=== PATIENT | female | born 1975 | race Caucasian/White ===

== ENCOUNTER 2018-07-19 10:22 | Emergency (ER) | payer BC, SELFPAY ==
[2018-07-19 10:23] VITALS: BP 149/98; PULSE 119; RESP 16; TEMP 36.4; O2SAT 98; BMI 26.4
[2018-07-19] MEDS: 0.9% Normal Saline 1,000 ML 1000 ML IV (10:47)
[2018-07-19 11:00] LABS: Absolute Neutrophil Count 4.3 X10^3/uL (2.0-7.7); Basophil# 0.02 X10^3/uL; Basophil% 0.3 % (0-1); Eosinophil# 0.12 X10^3/uL; Eosinophils% 1.6 % (0-5); Hematocrit 43.3 % (37-47); Lymphocyte % 32.6 % (19-41); Mean Corp Hgb Conc 34.6 g/gl (32-36); Mean Corpuscular Hgb 36.6 pg (27.0-32.0); Mean Corpuscular Volume 105.6 fL (81-99); Mean Platelet Vol. 9.4 fl (6.2-12.0); Monocyte# 0.69 X10^3/uL; Neutrophil # 4.34 X10^3/uL (2.7-7.7); Neutrophil % 56.4 % (47-70); POSITIVE COUNT NO; POSITIVE DIFFERENTIAL NO; POSITIVE MORPHOLOGY NO; Platelet Count 334 K/mm3 (150-450); RBC Distribution Width SD 50.2 fl (35.1-43.9); White Blood Count 7.7 K/mm3 (4.4-11.0)
[2018-07-19 11:14] LABS: AST(SGOT) 78 U/L (15-37); Alanine Aminotransfer ALT/SGPT 73 U/L (13-56); Albumin, Serum 3.8 g/dL (3.2-5.0); Alkaline Phosphatase 122 U/L (45-117); Anion Gap 9 (5-15); BUN 5 mg/dL (7-18); BUN/Creat Ratio 7.7 RATIO (10-20); Calcium,Total 8.9 mg/dL (8.5-10.1); Chloride 104 mmol/L (98-107); Creatinine, Serum 0.65 mg/dL (0.55-1.02); EST Glomerular Filtration Rate 105 mL/min (>60); Est Glom Filt Rate - Afr Amer 127 mL/min (>60); Estimated Creatinine Clearance 99.38 ml/min; Glucose 102 mg/dL (74-106); Lipase 248 U/L (73-393); Potassium 3.2 mmol/L (3.5-5.1); Protein, Total 7.8 g/dL (6.4-8.2); Sodium Level 138 mmol/L (136-145)
[2018-07-19 11:21] LABS: Lactic Acid 1.8 mmol/L (0.4-2.0)
[2018-07-19 11:23] LABS: Bacteria 0 SEEN /hpf (None Seen); Color, Urine Yellow (Yellow); Glucose, Dipstick Normal (Normal); Ketone-Dipstick Negative (Negative); Leukocyte Esterase-Dipstick Negative /ul (Negative); Mucous, Urine 0 SEEN /hpf (<or=2+); Nitrite-Dipstick Negative (Negative); Occult Blood-Urine Negative /ul (Negative); Protein-Dipstick Negative (Negative); Red Blood Cells-Urine 0 SEEN /hpf (0-5); Urine Bilirubin Dipstick Negative (Negative); Urine Clarity Clear (Clear); Urine Urobilinogen Normal (Normal); White Blood Cells 0 SEEN /hpf (0-5)
[2018-07-19 11:30] LABS: Squamous Epithelial Cells - UA 0-5 SEEN /hpf (5-10)
[2018-07-19] MEDS: 0.9% Normal Saline 1,000 ML 999 ML IV (12:12)
[2018-07-19 12:21] VITALS: BP 143/80; PULSE 78; RESP 14; O2SAT 100
--- NOTE | 2018-07-19 14:36 | ED.VISSUMM ---
- ER Visit Summary Date of Service: 07/19/18 Chief Complaint: [Diarrhea] History of Present Illness: The patient is a 42 F [presents the emergency department chief complaint of diarrhea that started 5 days ago. Patient states that she has been having watery stools about every 15-20 minutes. Patient denies any abdominal pain. She denies any fever. She denies any recent travel or recent antibiotic usage. Patient states that she is lost about 9 pounds in the last 5 days. Patient's been taken Imodium but not get much resolution of her symptoms. Patient denies any sick contacts.] Physical Examination: HEENT-PERRLA, EOMI. Cranial nerves II through XII grossly intact. TMs clear. Mucous membranes moist. No adenopathy. Cardiovascular-regular rate and rhythm without murmur or ectopy Lungs-clear to auscultation, chest wall stable without crepitus or subcu emphysema Abdomen-hyperactive bowel sounds. Minimal diffuse tenderness. There is no rebound, rigidity, or perineal signs. Extremities-intact ?4, normal range of motion, normal pulses, atraumatic [] Test Results: [CBC with differential obtained showed a white blood cell count of 7.7, hemoglobin 15, hematocrit 43, platelets 334. Chemistries showed a slightly depressed potassium 3.2 otherwise unremarkable. LFTs show slight elevation in her liver enzymes with ALT of 73 and AST of 78 and lipase of 248. Alkaline phosphatase was 122. Total bilirubin was normal 0.3. Urinalysis was normal. Stool for C. difficile was negative. Stool for enteric pathogens was negative.] Emergency Department Course and Treatment: [And received 2 L normal saline fluid boluses. She received 40 mEq potassium chloride p.o.] Treatment Plan: [Patient will be started on Lomotil and she is advised to follow-up with her primary care physician 3-5 days.] Disposition: [Discharged home in stable condition. Patient advised to return if persistent diarrhea, dehydration, high fevers, abdominal pain, or condition should worsen anyway.] Impression: [Diarrhea-etiology uncertain] This note was generated with [employer] dictation software. It may contain incorrect words, spelling, and punctuation that were not noted in review of the chart prior to signing ED Disposition - Plan for ED Patient: Chief Complaint: Diarrhea Referrals: Jaya Conte MD [Primary Care Provider] -
--- NOTE | 2018-07-19 14:39 | ED.DEP ---
ED Disposition - Plan for ED Patient: Chief Complaint: Diarrhea Instructions: ED Diarrhea Viral Prescriptions: Diphenoxylate/Atrop [Lomotil] 1 tab PO TID PRN PRN #20 tab PRN Reason: Diarrhea Referrals: Jaya Conte MD [Primary Care Provider] - 3-5 Days
[2018-07-19 14:49] VITALS: BP 135/71; PULSE 91; RESP 17; O2SAT 97
--- NOTE | 2018-07-19 14:49 | ED.RN ---
IV DC'ED, CATHETER INTACT, SMALL GAUZE DRESSING PLACED. DISCHARGE INSTRUCTIONS GIVEN TO AND REVIEWED WITH PATIENT, PATIENT DENIES QUESTIONS OR CONCERNS AND VOICES UNDERSTANDING OF DISCHARGE INSTRUCTIONS. PT AMBULATES OUT OF ROOM WITHOUT DIFFICULTY .
== END 2018-07-19 14:50 | disposition home or self-care (01) ==
LOC: ED 10:51
PROVIDERS: Emergency Provider Emergency Medicine; Family Provider Family Medicine; PCP Family Medicine
DX: R19.7 Diarrhea, unspecified (principal); R94.5 Abnormal results of liver function studies; Z72.0 Tobacco use
CPT/HCPCS: 80053; 81001; 83605; 83690; 85025; 87177; 87209; 87493; 87506; 99284

== ENCOUNTER 2018-10-02 10:40 | Emergency (ER) | payer BC, SELFPAY ==
[2018-10-02 10:41] VITALS: BP 139/82; PULSE 112; RESP 16; TEMP 36.8; O2SAT 99; BMI 25.2
--- NOTE | 2018-10-02 11:24 | ED.VIS.GEN ---
History of Present Illness Chief Complaint: Fall Informant: Patient Onset: Yesterday Context: Onset with activity - fell, Gradual Onset - this AM mostly Timing: Continuous Quality: sore Location: right lower-ant ribs. left low back. left upper arm/elbow. Current Severity: Severe Maximum Severity: Severe Worsened by: deep breath, cough, laugh. movement. Relieved by: breathing easy and remaining still Associated Symptoms: no SOB. no neuro sx. Narrative: Patient states she was standing on a picnic table to hang [employer] lights when she inadvertently fell off, hitting her right arm and her low back, in addition to her right rib cage on parts of the picnic table. She did not fall to the ground or hit her head. This was yesterday, she really did not have much in the way of discomfort until she woke up today, now it hurts a lot to breathe. She denies any dyspnea. [id number]. Past Medical History - Allergies and Home Meds Allergies/Adverse Reactions: Allergies metronidazole [From Flagyl] Allergy (Mild, Verified 10/02/18 10:43) Unknown BEE VENOM Allergy (Uncoded 10/02/18 10:43) Anaphylaxis Primary Care Physician: Jaya Conte MD [Primary Care Provider] - 1 Week if not improving Lives: Spouse/ Significant Other Smoking Status: Current every day smoker Review of Systems Eyes: Denies: Visual changes - bilaterally, Diplopia ENT: Denies: Rhinorrhea, Sore throat Cardiovascular: Reports: Chest pain. Denies: Palpitations Respiratory: Denies: Dyspnea, Cough Gastrointestinal: Denies: Nausea, Vomiting Musculoskeletal: Reports: Back pain, Extremity Pain. Denies: Neck pain Skin: Reports: Abrasions Neurological: Denies: Headache, Weakness, Parasthesia Physical Exam Vital Signs/Narrative: Vital Signs Temp Pulse Resp BP Pulse Ox 10/02/18 10:41 98.2 F 112 H 16 139/82 H 99 Inital Vital Signs reviewed: Yes General: Well nourished, Well developed Head: Normocephalic, Atraumatic Eyes: Perrl, EOMI ENT: Moist mucous membranes, No rhinorrhea Neck: Supple, Nontender Cardiovascular: Regular rate, Regular rhythm, No murmurs Respiratory: No distress, CTA bilaterally, Chest tenderness - right mid-ant and lower ribcage Back: - - mildly tender left lateral paraspinal area where minor abrasion present. Negative for: Spinal tenderness Extremities: Nontender - and FROM. see below., No edema Skin: Normal color, No rash, Trauma - abrasion left low back; contusion lateral aspect distal right upper arm. nontender. FROM elbow, no radial head tenderness. Neurological: Alert, Oriented x3, Cranial nerves II-XII grossly intact, Normal Strength, Normal Sensation, Normal Gait Psychological: Normal affect Diagnostic/Tx/Re-eval - Medical Decision Making I do not think the patient needs any x-rays and she agrees. We both agree to symptom control, we discussed reasons to return, she has equal breath sounds right now and is breathing comfortably, it hurts to laugh or to cough hard, all consistent with a rib contusion especially with the delayed onset of symptoms. Given a prescription for Ultram and one here before she goes. ED Disposition - Plan for ED Patient: Disposition: Home or Assisted Living Chief Complaint: Fall Diagnosis: Contusion of rib on right side, Lumbar contusion, Contusion of right arm Instructions: ED Contusion Vs Minor Fx Rib Prescriptions: RX: traMADol [Ultram] 50 mg PO Q6H PRN PRN 3 Days #12 tablet PRN Reason: Pain Referrals: Jaya Conte MD [Primary Care Provider] - 1 Week if not improving
[2018-10-02] MEDS: traMADol 50 MG Tablet PO (11:42)
[2018-10-02 11:54] VITALS: BP 126/74; PULSE 73; RESP 15; O2SAT 98
--- OUTSIDE RECORDS SUMMARY | 2018-11-18 06:56 | XMS RPT_ITS ---
:1975 Author Organization [facility] Care Team Providers Name Role Phone TylerDesirae cedeno Attending Unavailable Primay Care Physicia, No Referring Unavailable Furness, Jaya Primary Care Unavailable DANNIELLE GRANADOS Attending Unavailable Leesa Elizondo Attending Unavailable Furness, Jaya Primary Care Unavailable Furness, Jaya T Attending Unavailable Furness, Jaya T Admitting Unavailable Furness, Jaya T Primary Care Unavailable Lukasz Velasco Consulting Unavailable Lukasz Velasco Attending Unavailable Furness, Jaya T Primary Care Unavailable Furness, Jaya T Attending Unavailable Furness, Jaya T Primary Care Unavailable Furness, Jaya T Admitting Unavailable Furness, Jaya T Attending Unavailable Furness, Jaya T Primary Care Unavailable Furness, Jaya T Primary Care Unavailable Gil Beth Admitting Unavailable Gil Beth Attending Unavailable Furness, Jaya T Primary Care Unavailable Devin Kaur Admitting Unavailable Devin Kaur Attending Unavailable Furness, Jaya T Attending Unavailable Furness, Jaya T Primary Care Unavailable Lukasz Velasco Attending Unavailable Furness, Jaya T Referring Unavailable Furness, Jaya T Primary Care Unavailable Furness, Jaya T Admitting Unavailable Furness, Jaya T Attending Unavailable Furness, Jaya T Primary Care Unavailable Furness, Jaya T Attending Unavailable Furness, Jaya T Primary Care Unavailable PROBLEMS PROBLEMS DATE TYPE CONDITION / CODE ATTENDING STATUS SOURCE 2018 Unknown S20.219A - DANNIELLE GRANADOS Contusion of Community unspecified front Hospital wall of thorax, Repository initial encounter / S20.219A(ICD-10) PROCEDURES PROCEDURES No Procedure Records FoundRESULTS RESULTS EMERGENCY DEPARTMENT Observed: 2018 Status: F Source: [place] SUMMARY 5:05 PM [facility] [place], [place] REPOSITORY [facility] Medical Records Department [address] [place] [address] Emergency Department Summary 10/02/18 1124 MR#: [id number] Acct: [id number] Name: FLORENCIO DEMPSEY Rep #: [id number] : 1975 43 From: Dannielle Granados MD PCP: Jaya Conte MD Status: DEP ER History of Present Illness Chief Complaint: Fall Informant: Patient Onset: Yesterday Context: Onset with activity - fell, Gradual Onset - this AM mostly Timing: Continuous Quality: sore Location: right lower-ant ribs. left low back. left upper arm/elbow. Current Severity: Severe Maximum Severity: Severe Worsened by: deep breath, cough, laugh. movement. Relieved by: breathing easy and remaining still Associated Symptoms: no SOB. no neuro sx. Narrative: Patient states she was standing on a picnic table to hang [employer] lights when she inadvertently fell off, hitting her right arm and her low back, in addition to her right rib cage on parts of the picnic table. She did not fall to the ground or hit her head. This was yesterday, she really did not have much in the way of discomfort until she woke up today, now it hurts a lot to breathe. She denies any dyspnea. [id number]. Past Medical History - Allergies and Home Meds Allergies/Adverse Reactions: Allergies metronidazole [From Flagyl] Allergy (Mild, Verified 10/02/18 10:43) Unknown BEE VENOM Allergy (Uncoded 10/02/18 10:43) Anaphylaxis Primary Care Physician: Jaya Conte MD [Primary Care Provider] - 1 Week if not improving Lives: Spouse/ Significant Other Smoking Status: Current every day smoker Review of Systems Eyes: Denies: Visual changes - bilaterally, Diplopia ENT: Denies: Rhinorrhea, Sore throat Cardiovascular: Reports: Chest pain. Denies: Palpitations Respiratory: Denies: Dyspnea, Cough Gastrointestinal: Denies: Nausea, Vomiting Musculoskeletal: Reports: Back pain, Extremity Pain. Denies: Neck pain Skin: Reports: Abrasions Neurological: Denies: Headache, Weakness, Parasthesia Physical Exam Vital Signs/Narrative: Vital Signs 10/02/18 10:41 98.2 F 112 H 16 139/82 H 99 Inital Vital Signs reviewed: Yes General: Well nourished, Well developed Head: Normocephalic, Atraumatic Eyes: Perrl, EOMI ENT: Moist mucous membranes, No rhinorrhea Neck: Supple, Nontender Cardiovascular: Regular rate, Regular rhythm, No murmurs Respiratory: No distress, CTA bilaterally, Chest tenderness - right mid-ant and lower ribcage Back: - - mildly tender left lateral paraspinal area where minor abrasion present. Negative for: Spinal tenderness Extremities: Nontender - and FROM. see below., No edema Skin: Normal color, No rash, Trauma - abrasion left low back; contusion lateral aspect distal right upper arm. nontender. FROM elbow, no radial head tenderness. Neurological: Alert, Oriented x3, Cranial nerves II-XII grossly intact, Normal Strength, Normal Sensation, Normal Gait Psychological: Normal affect Diagnostic/Tx/Re-eval - Medical Decision Making I do not think the patient needs any x-rays and she agrees. We both agree to symptom control, we discussed reasons to return, she has equal breath sounds right now and is breathing comfortably, it hurts to laugh or to cough hard, all consistent with a rib contusion especially with the delayed onset of symptoms. Given a prescription for Ultram and one here before she goes. ED Disposition - Plan for ED Patient: Disposition: Home or Assisted Living Chief Complaint: Fall Diagnosis: Contusion of rib on right side, Lumbar contusion, Contusion of right arm Instructions: ED Contusion Vs Minor Fx Rib Prescriptions: RX: traMADol [Ultram] 50 mg PO Q6H PRN PRN 3 Days #12 tablet PRN Reason: Pain Referrals: Jaya Conte MD [Primary Care Provider] - 1 Week if not improving What to do if you have Problems For any increased pain, shortness of breath, bleeding, nausea or vomiting, chest pain, or any unexpected problems, contact your Primary Care Provider. Call [facility] ([phone]) or report to the closest Emergency Room. Call 911 if necessary. 10/02/18 1705 <Electronically signed by Dannielle Granados MD> Date Dannielle Granados MD Cosigner Signature (If Indicated): Date CC: Jaya Conte MD GI PANEL Collected: 09/24/2018 Status: F Source: [facility] 1:40 PM [facility] REPOSITORY Order Comment: A negative FilmArray GI Panel result does not exclude the possibility of gastrointestinal infection. TYPE CODE TESTS RESULT OUT OF RANGE REFERENCE UNITS LAB 757402406 (LOINC) Campylobacter Normal Not Detected LAB 168454530 (LOINC) Clostridium difficile Normal toxin A/B Not Detected LAB 448014559 (LOINC) Plesiomonas Normal shigelloides Not Detected LAB 687195520 (LOINC) Salmonella Normal Not Detected LAB 972978713 (LOINC) Vibrio Normal Not Detected LAB 644679486 (LOINC) Vibrio cholerae Normal Not Detected LAB 102641843 (LOINC) Yersinia Normal enterocolitica Not Detected LAB 916702181 (LOINC) Enteroaggregatvie E Normal coli (EAEC) Not Detected LAB 591966858 (LOINC) Enteropathogenic E Normal Coli (EPEC) Not Detected LAB 415022071 (LOINC) Enterotoxigenci E Normal coli (ETEC)lt/st Not Detected LAB 866925148 (LOINC) Shiga-like Normal toxin-producing E Not coli (STEC) Detected LAB 140832456 (LOINC) Shigella/Enteroinvasi Normal ve E coli (EIEC) Not Detected LAB 363648713 (LOINC) Cryptosporidium Normal Not Detected LAB 870749925 (LOINC) Cyclospora Normal cayetanensis Not Detected LAB 045253422 (LOINC) Entamoeba histolytica Normal Not Detected LAB 337677115 (LOINC) Giardia lamblia Abnormal Detected LAB 138346610 (LOINC) Adenovirus F40/41 Normal Not Detected LAB 481767148 (LOINC) Astrovirus Normal Not Detected LAB 205474323 (LOINC) Norovirus GI/GII Normal Not Detected LAB 003648072 (LOINC) Rotavirus A Normal Not Detected Result Comment: The performance of the FilmArray GI Panel has not been established in individuals who received Rotavirus A vaccine. Recent oral administration of a Rotavirus A vaccine may cause positiv e results for Rotavirus A if the virus is passed in the stool. Note: A negative FilmArray GI Panel does not exclude the possibility of gastrointestinal infection. LAB 558255235(LOINC) Normal Sapovirus Not Detected LAB 603622161(LOINC) E Normal coli 0157 Not Detected Performed By: #### [id number] #### KARISHMA [facility] Micro SubSection , BMP Collected: 08/19/2018 Status: C Source: [facility] 3:07 PM [facility] REPOSITORY TYPE CODE TESTS RESULT OUT OF RANGE REFERENCE UNITS LAB 75051327(L 70-99 mg/dL OINC) Glucose Normal Lvl 88 LAB 36688714(L 6-23 mg/dL OINC) BUN Normal 9 LAB 0988537(LO 0.6-1.3 mg/dL INC) Low Creatinine 0.5 LAB 31304621(L 5.4-30.0 ratio OINC) Normal BUN/Creat Ratio 18.0 LAB 31040032(L 8.6-10.3 mg/dL OINC) Low Calcium Lvl 7.6 LAB 16996275(L 136-145 mEq/L OINC) Low Sodium Lvl 135 LAB 68399997(L 3.5-5.3 mEq/L OINC) Low Potassium Lvl 3.1 LAB 58309492(L 98-107 mEq/L OINC) Chloride Normal 104 LAB 68128600(L 21.0-32.0 mEq/L OINC) CO2 Normal 21.0 LAB 70255784(L 10-20 mEq/L OINC) AGAP Normal 13 Performed By: #### [id number] #### KARISHMA [facility] [place] [id number] EGFR Collected: 08/19/2018 Status: F Source: [facility] 3:07 [facility] REPOSITORY Order Comment: Order added by Discern Expert. TYPE CODE TESTS RESULT OUT OF RANGE REFERENCE UNITS LAB 91602210(LO mL/min/1.73 INC) m2 Normal eGFR >60 LAB 99394511(LO mL/min/1.73 INC) m2 Normal eGFR AA >60 Performed By: #### [id number] #### KARISHMA [employer] [address] [place], [place] [address] HEP FUNC PANEL Collected: 08/19/2018 Status: F Source: [facility] 3:07 [facility] REPOSITORY TYPE CODE TESTS RESULT OUT OF RANGE REFERENCE UNITS LAB 11827906(L 7-45 Int._Unit/L OINC) Normal ALT 18 LAB 23983116(L 9-39 Int._Unit/L OINC) Normal AST 15 LAB 33028605(L 3.4-5.0 G/DL OINC) Normal Albumin Lvl 3.6 LAB 65967599(L 2.0-4.0 G/DL OINC) Normal Globulin 3.0 LAB 32336829(L 1.1-1.9 ratio OINC) Normal A/G Ratio 1.4 LAB 89882731(L 33-110 Int._Unit/L OINC) Normal Alk Phos 98 LAB 72214645(L .00-.30 mg/dL OINC) Normal Bili Direct .10 LAB 40926592(L OINC) Normal Bili Indirect 0.3 LAB 14033840(L 0.0-1.2 mg/dL OINC) Normal Bili Total 0.4 LAB 11755140(L 6.4-8.2 gm/dL OINC) Low Total Protein 6.1 Performed By: #### [id number] #### KARISHMA [employer] [facility] [place] [id number] LIPASE LEVEL Collected: 08/19/2018 Status: F Source: [facility] 3:07 PM [facility] REPOSITORY TYPE CODE TESTS RESULT OUT OF RANGE REFERENCE UNITS LAB 10878570(LO 9-82 Int._Unit/L INC) Normal Lipase Lvl 52 Performed By: #### [id number] #### KARISHMA [employer] [address] [place] [address] CBC W/ AUTO DIFF Collected: 08/19/2018 Status: F Source: [facility] 3:07 PM [facility] REPOSITORY TYPE CODE TESTS RESULT OUT OF RANGE REFERENCE UNITS LAB 17404679(L 3.6-11.0 E3/mcL OINC) Normal WBC 8.0 LAB 29598315(L 3.90-5.40 E6/mcL OINC) Normal RBC 4.34 LAB 90576756(L 12.0-16.0 G/DL OINC) High Hgb 16.1 LAB 37964848(L 36.0-48.0 % OINC) Normal Hct 47.1 LAB 90413784(L 11.5-14.5 % OINC) Normal RDW 14.5 LAB 74779180(L 27.0-31.0 pg OINC) High MCH 37.2 LAB 69252169(L 33.0-37.0 G/DL OINC) Normal MCHC 34.2 LAB 79924463(L 78.0-100.0 fL OINC) High MCV 108.6 LAB 38688802(L 7.4-11.0 fL OINC) Low MPV 7.1 LAB 78352670(L 130-400 E3/mcL OINC) Normal Platelet 353 Performed By: #### [id number] #### KARISHMA [employer] [address] [place] [address] MORPH Collected: 08/19/2018 Status: F Source: [facility] 3:07 PM [facility] REPOSITORY Order Comment: Order Added by Discern Expert. TYPE CODE TESTS RESULT OUT OF REFERENCE UNITS RANGE LAB 32228037( LOINC) RBC Morph SEE Normal MORPHOLOGY LAB 74548241( LOINC) Macrocyte 2+ Normal LAB 58716005( LOINC) 1+ Normal Anisocytosis Performed By: #### [id number] #### KARISHMA [employer] [address] [place] [address] ZZPLT MORPH Collected: 08/19/2018 Status: F Source: [facility] 3:07 PM [facility] REPOSITORY TYPE CODE TESTS RESULT OUT OF RANGE REFERENCE UNITS LAB 53040960(L OINC) Normal Platelet NORMAL Estimate LAB 80609742(L OINC) Normal Platelet Morph NORMAL Performed By: #### [id number] #### KARISHMA [employer] [address] [place] [address] AUTO DIFF Collected: 08/19/2018 Status: F Source: [facility] 3:07 PM [facility] REPOSITORY Order Comment: Order Added by Discern Expert. TYPE CODE TESTS RESULT OUT OF RANGE REFERENCE UNITS LAB 19557680(L 37.0-75.0 % OINC) Normal Neutro Auto 73.4 LAB 34969539(L 20.0-55.0 % OINC) Low Lymph Auto 17.3 LAB 74865475(L 0.0-10.0 % OINC) Normal Pettis Auto 8.2 LAB 15441176(L 0.0-11.0 % OINC) Normal Eos Auto 0.9 LAB 07815062(L 0.0-2.0 % OINC) Normal Basophil Auto 0.2 LAB 57996289(L 1.4-6.5 E3/mcL OINC) Normal Neutro 5.8 Absolute LAB 42763546(L 1.2-3.4 E3/mcL OINC) Normal Lymph Absolute 1.4 LAB 96248205(L 0.0-0.7 E3/mcL OINC) Normal Pettis Absolute 0.7 LAB 07742059(L 0.0-0.7 E3/mcL OINC) Normal Eos Absolute 0.1 LAB 59366389(L 0.0-0.2 E3/mcL OINC) Normal Basophil 0.0 Absolute Performed By: #### [id number] #### KARISHMA [employer] [address] [place] [id number] LACTIC ACID Collected: 08/17/2018 Status: F Source: [facility] 12:27 PM [facility] REPOSITORY TYPE CODE TESTS RESULT OUT OF RANGE REFERENCE UNITS LAB 60037511(LO 0.5-2.2 mmol/L INC) Normal Lactic Acid 0.7 Lvl Performed By: #### [id number] #### KARISHMA [employer] [facility] [place] [id number] CBC W/ AUTO DIFF Collected: 08/17/2018 Status: F Source: [facility] 12:01 [facility] REPOSITORY TYPE CODE TESTS RESULT OUT OF RANGE REFERENCE UNITS LAB 11462770(L 3.6-11.0 E3/mcL OINC) Normal WBC 7.0 LAB 57287725(L 3.90-5.40 E6/mcL OINC) Normal RBC 4.20 LAB 69782626(L 12.0-16.0 G/DL OINC) Normal Hgb 15.5 LAB 43184426(L 36.0-48.0 % OINC) Normal Hct 45.7 LAB 56520590(L 11.5-14.5 % OINC) Normal RDW 14.5 LAB 57491609(L 27.0-31.0 pg OINC) High MCH 37.0 LAB 80422628(L 33.0-37.0 G/DL OINC) Normal MCHC 34.0 LAB 86450882(L 78.0-100.0 fL OINC) High MCV 108.8 LAB 73472947(L 7.4-11.0 fL OINC) Normal MPV 7.4 LAB 15630331(L 130-400 E3/mcL OINC) Normal Platelet 376 Performed By: #### [id number] #### KARISHMA RemHemo [facility] [place] [address] MORPH Collected: 08/17/2018 Status: F Source: [facility] 12: [facility] REPOSITORY Order Comment: Order Added by Discern Expert. TYPE CODE TESTS RESULT OUT OF REFERENCE UNITS RANGE LAB 87023161(L OINC) RBC SEE Normal Morph MORPHOLOGY LAB 72413369(L OINC) 1+ Normal Macrocyte Performed By: #### [id number] #### KARISHMA RemHemo [facility] [place] [address] ZZPLT MORPH Collected: 08/17/2018 Status: F Source: [facility] 12: [facility] REPOSITORY TYPE CODE TESTS RESULT OUT OF RANGE REFERENCE UNITS LAB 37956119(L OINC) Normal Platelet NORMAL Estimate LAB 24317609(L OINC) Normal Platelet Morph NORMAL Performed By: #### [id number] #### KARISHMA RemH[facility] [place] [address] AUTO DIFF Collected: 08/17/2018 Status: F Source: [place] [address]:01 [facility] REPOSITORY Order Comment: Order Added by Discern Expert. TYPE CODE TESTS RESULT OUT OF RANGE REFERENCE UNITS LAB 57428613(L 37.0-75.0 % OINC) Normal Neutro Auto 60.2 LAB 47471554(L 20.0-55.0 % OINC) Normal Lymph Auto 29.6 LAB 18018745(L 0.0-10.0 % OINC) Normal Pettis Auto 8.5 LAB 56714385(L 0.0-11.0 % OINC) Normal Eos Auto 1.3 LAB 31725377(L 0.0-2.0 % OINC) Normal Basophil Auto 0.4 LAB 88480123(L 1.4-6.5 E3/mcL OINC) Normal Neutro 4.2 Absolute LAB 18220448(L 1.2-3.4 E3/mcL OINC) Normal Lymph Absolute 2.1 LAB 29357329(L 0.0-0.7 E3/mcL OINC) Normal Pettis Absolute 0.6 LAB 51822713(L 0.0-0.7 E3/mcL OINC) Normal Eos Absolute 0.1 LAB 39649341(L 0.0-0.2 E3/mcL OINC) Normal Basophil 0.0 Absolute Performed By: #### [id number] #### KARISHMA Thompson [address] [place] [address] Collected: 08/17/2018 Status: F Source: [facility] 12:01 [facility] REPOSITORY TYPE CODE TESTS RESULT OUT OF RANGE REFERENCE UNITS LAB 05450092(L 10-20 mEq/L OINC) AGAP Normal 12 LAB 64808511(L 70-99 mg/dL OINC) High Glucose Lvl 105 LAB 08786621(L 6-23 mg/dL OINC) BUN Normal 8 LAB 0041400(LO 0.6-1.3 mg/dL INC) Low Creatinine 0.5 LAB 95212741(L 5.4-30.0 ratio OINC) Normal BUN/Creat Ratio 16.0 LAB 96836531(L 8.6-10.3 mg/dL OINC) Calcium Normal Lvl 8.8 LAB 06017925(L 136-145 mEq/L OINC) Sodium Normal Lvl 139 LAB 08626510(L 3.5-5.3 mEq/L OINC) Normal Potassium Lvl 3.5 LAB 40356790(L 98-107 mEq/L OINC) High Chloride 109 LAB 77816059(L 21.0-32.0 mEq/L OINC) CO2 Normal 22.0 Performed By: #### [id number] #### KARISHMA [employer] [address] [place] [address] EGFR Collected: 08/17/2018 Status: F Source: [facility] 12:01 [facility] REPOSITORY Order Comment: Order added by Discern Expert. TYPE CODE TESTS RESULT OUT OF RANGE REFERENCE UNITS LAB 91636320(LO mL/min/1.73 INC) m2 Normal eGFR >60 LAB 38437460(LO mL/min/1.73 INC) m2 Normal eGFR AA >60 Performed By: #### [id number] #### KARISHMA [employer] [address] [place] [id number] HEP FUNC PANEL Collected: 08/17/2018 Status: F Source: [facility] 12:01 [facility] REPOSITORY TYPE CODE TESTS RESULT OUT OF RANGE REFERENCE UNITS LAB 91279932(L 7-45 Int._Unit/L OINC) Normal ALT 24 LAB 50527462(L 9-39 Int._Unit/L OINC) Normal AST 21 LAB 47602834(L 3.4-5.0 G/DL OINC) Normal Albumin Lvl 3.7 LAB 83283002(L 2.0-4.0 G/DL OINC) Normal Globulin 3.0 LAB 26364438(L 1.1-1.9 ratio OINC) Normal A/G Ratio 1.5 LAB 17423635(L 33-110 Int._Unit/L OINC) Normal Alk Phos 107 LAB 08170421(L .00-.30 mg/dL OINC) Normal Bili Direct .04 LAB 60288870(L OINC) Normal Bili Indirect 0.3 LAB 44891541(L 0.0-1.2 mg/dL OINC) Normal Bili Total 0.3 LAB 97592284(L 6.4-8.2 gm/dL OINC) Low Total Protein 6.2 Performed By: #### [id number] #### KARISHAM [employer] [address] [place] [address] LIPASE LEVEL Collected: 08/17/2018 Status: F Source: [facility] 12:01 PM [facility] REPOSITORY TYPE CODE TESTS RESULT OUT OF REFERENCE UNITS RANGE LAB 01025594(LO 9-82 Int._Unit/L INC) High Lipase Lvl 90 Performed By: #### [id number] #### KARISHMA Rem[facility] [place] [address] GI PANEL Collected: 08/17/2018 Status: F Source: [facility] 11:38 AM [facility] REPOSITORY Order Comment: A negative FilmArray GI Panel result does not exclude the possibility of gastrointestinal infection. TYPE CODE TESTS RESULT OUT OF RANGE REFERENCE UNITS LAB 402934799 (LOINC) Campylobacter Normal Not Detected LAB 888644488 (LOINC) Clostridium difficile Normal toxin A/B Not Detected LAB 186518298 (LOINC) Plesiomonas Normal shigelloides Not Detected LAB 602628535 (LOINC) Salmonella Normal Not Detected LAB 063868832 (LOINC) Vibrio Normal Not Detected LAB 888074175 (LOINC) Vibrio cholerae Normal Not Detected LAB 428367516 (LOINC) Yersinia Normal enterocolitica Not Detected LAB 262623084 (LOINC) Enteroaggregatvie E Normal coli (EAEC) Not Detected LAB 044795140 (LOINC) Enteropathogenic E Normal Coli (EPEC) Not Detected LAB 069041796 (LOINC) Enterotoxigenci E Normal coli (ETEC)lt/st Not Detected LAB 141334312 (LOINC) Shiga-like Normal toxin-producing E Not coli (STEC) Detected LAB 904723545 (LOINC) Shigella/Enteroinvasi Normal ve E coli (EIEC) Not Detected LAB 315750163 (LOINC) Cryptosporidium Normal Not Detected LAB 429717880 (LOINC) Cyclospora Normal cayetanensis Not Detected LAB 951287538 (LOINC) Entamoeba histolytica Normal Not Detected LAB 734679708 (LOINC) Giardia lamblia Abnormal Detected Result Comment: Called results to Jaya POPE LAB 663604298(LOINC) Normal Adenovirus Not Detected F40/41 LAB 656416035(LOINC) Normal Astrovirus Not Detected LAB 376426895(LOINC) Normal Norovirus GI/GII Not Detected LAB 345956600(LOINC) Normal Rotavirus A Not Detected Result Comment: The performance of the FilmArray GI Panel has not been established in individuals who received Rotavirus A vaccine. Recent oral administration of a Rotavirus A vaccine may cause positiv e results for Rotavirus A if the virus is passed in the stool. Note: A negative FilmArray GI Panel does not exclude the possibility of gastrointestinal infection. LAB 720798524(LOINC) Normal Sapovirus Not Detected LAB 315366822(LOINC) E Normal coli 0157 Not Detected Performed By: #### [id number] #### KARISHMA Misc Micro SubSection , UA COMPLETE Collected: 08/17/2018 Status: F Source: [facility] 11:21 AM [facility] REPOSITORY TYPE CODE TESTS RESULT OUT OF RANGE REFERENCE UNITS LAB 77973355( Yellow LOINC) Normal UA Color Yellow LAB 01675135( Clear LOINC) UA Clarity Abnormal SltCloudy LAB 46435200( Negative LOINC) Normal UA Glucose Negative LAB 86245418( Negative LOINC) Normal UA Bili Negative LAB 92081937( Negative LOINC) Normal UA Ketones Negative LAB 79735448( 1.003-1.030 LOINC) Normal UA Spec Grav 1.021 LAB 56861666( 4.6-8.0 LOINC) Normal UA pH 5.0 LAB 72908702( Negative LOINC) UA Protein 1+ Abnormal LAB 32478632( mg/dL LOINC) UA Abnormal Urobilinogen 2.0 LAB 03659810( Negative LOINC) Normal UA Nitrite Negative LAB 77161589( Negative LOINC) Normal UA Blood Negative LAB 92058781( Negative LOINC) Normal UA Leuk Est Negative LAB 02648196( 0-3 /HPF LOINC) Normal UA RBC 0-3 LAB 12315191( 0-5 /HPF LOINC) Normal UA WBC 0-5 LAB 04351611( 0-5 /HPF LOINC) UA Squam Abnormal Epithelial 5-10 LAB 00370882( None /HPF LOINC) UA Bacteria 4+ Abnormal LAB 88131479( Trace /LPF LOINC) UA Mucous Abnormal Moderate Performed By: #### [id number] #### KARISHMA [employer]ated [employer] [address] [place], [place] [id number] GI PANEL Collected: 07/21/2018 Status: F Source: [facility] 12:35 PM [facility] REPOSITORY Order Comment: A negative FilmArray GI Panel result does not exclude the possibility of gastrointestinal infection. TYPE CODE TESTS RESULT OUT OF RANGE REFERENCE UNITS LAB 177092656 (LOINC) Campylobacter Normal Not Detected LAB 607815765 (LOINC) Clostridium difficile Normal toxin A/B Not Detected LAB 595510137 (LOINC) Plesiomonas Normal shigelloides Not Detected LAB 670282416 (LOINC) Salmonella Normal Not Detected LAB 638546741 (LOINC) Vibrio Normal Not Detected LAB 494115649 (LOINC) Vibrio cholerae Normal Not Detected LAB 466439425 (LOINC) Yersinia Normal enterocolitica Not Detected LAB 565813198 (LOINC) Enteroaggregatvie E Normal coli (EAEC) Not Detected LAB 658042869 (LOINC) Enteropathogenic E Normal Coli (EPEC) Not Detected LAB 083552291 (LOINC) Enterotoxigenci E Normal coli (ETEC)lt/st Not Detected LAB 241885076 (LOINC) Shiga-like Normal toxin-producing E Not coli (STEC) Detected LAB 442228232 (LOINC) Shigella/Enteroinvasi Normal ve E coli (EIEC) Not Detected LAB 528440005 (LOINC) Cryptosporidium Normal Not Detected LAB 174011310 (LOINC) Cyclospora Normal cayetanensis Not Detected LAB 570249912 (LOINC) Entamoeba histolytica Normal Not Detected LAB 453724870 (LOINC) Giardia lamblia Abnormal Detected LAB 475546823 (LOINC) Adenovirus F40/41 Normal Not Detected LAB 034350352 (LOINC) Astrovirus Normal Not Detected LAB 654092690 (LOINC) Norovirus GI/GII Normal Not Detected LAB 335848860 (LOINC) Rotavirus A Normal Not Detected Result Comment: The performance of the FilmArray GI Panel has not been established in individuals who received Rotavirus A vaccine. Recent oral administration of a Rotavirus A vaccine may cause positiv e results for Rotavirus A if the virus is passed in the stool. Note: A negative FilmArray GI Panel does not exclude the possibility of gastrointestinal infection. LAB 761496573(LOINC) Normal Sapovirus Not Detected LAB 086282783(LOINC) E Normal coli 0157 Not Detected Performed By: #### [id number] #### KARISHMA [facility] Micro SubSection , DISCHARGE INSTRUCTION Observed: 07/19/2018 Status: F Source: [facility] 2:41 PM [facility] [place] [place] REPOSITORY [facility] Medical Records Department [address] [place] [address] Discharge Instruction 07/19/18 1439 MR#: [id number] Acct: [id number] Name: FLORENCIO DEMPSEY Rep #: [id number] : 1975 42 From: Leesa Elizondo DO PCP: Jaya Conte MD Status: REG ER ED Disposition - Plan for ED Patient: Chief Complaint: Diarrhea Instructions: ED Diarrhea Viral Prescriptions: Diphenoxylate/Atrop [Lomotil] 1 tab PO TID PRN PRN #20 tab PRN Reason: Diarrhea Referrals: Jaya Conte MD [Primary Care Provider] - 3-5 Days What to do if you have Problems For any increased pain, shortness of breath, bleeding, nausea or vomiting, chest pain, or any unexpected problems, contact your Primary Care Provider. Call [facility] ([phone]) or report to the closest Emergency Room. Call 911 if necessary. 07/19/18 1441 <Electronically signed by Leesa Elizondo DO> Date Leesa Elizondo DO Cosigner Signature (If Indicated): Date CC: Jaya Conte MD EMERGENCY DEPARTMENT Observed: 07/19/2018 Status: F Source: MERY SUMMARY 2:39 PM [facility] [place] [place] REPOSITORY [facility] Medical Records Department [address] [place] [address] Emergency Department Summary 07/19/18 1436 MR#: [id number] Acct: [id number] Name: FLORENCIO DEMPSEY Rep #: [id number] : 1975 42 From: Leesa Elizondo DO PCP: Jaya Conte MD Status: REG ER - ER Visit Summary Date of Service: 07/19/18 Chief Complaint: [Diarrhea] History of Present Illness: The patient is a 42 F [presents the emergency department chief complaint of diarrhea that started 5 days ago. Patient states that she has been having watery stools about every 15-20 minutes. Patient denies any abdominal pain. She denies any fever. She denies any recent travel or recent antibiotic usage. Patient states that she is lost about 9 pounds in the last 5 days. Patient's been taken Imodium but not get much resolution of her symptoms. Patient denies any sick contacts.] Physical Examination: HEENT-PERRLA, EOMI. Cranial nerves II through XII grossly intact. TMs clear. Mucous membranes moist. No adenopathy. Cardiovascular-regular rate and rhythm without murmur or ectopy Lungs-clear to auscultation, chest wall stable without crepitus or subcu emphysema Abdomen-hyperactive bowel sounds. Minimal diffuse tenderness. There is no rebound, rigidity, or perineal signs. Extremities-intact 4, normal range of motion, normal pulses, atraumatic [] Test Results: [CBC with differential obtained showed a white blood cell count of 7.7, hemoglobin 15, hematocrit 43, platelets 334. Chemistries showed a slightly depressed potassium 3.2 otherwise unremarkable. LFTs show slight elevation in her liver enzymes with ALT of 73 and AST of 78 and lipase of 248. Alkaline phosphatase was 122. Total bilirubin was normal 0.3. Urinalysis was normal. Stool for C. difficile was negative. Stool for enteric pathogens was negative.] Emergency Department Course and Treatment: [And received 2 L normal saline fluid boluses. She received 40 mEq potassium chloride p.o.] Treatment Plan: [Patient will be started on Lomotil and she is advised to follow-up with her primary care physician 3-5 days.] Disposition: [Discharged home in stable condition. Patient advised to return if persistent diarrhea, dehydration, high fevers, abdominal pain, or condition should worsen anyway.] Impression: [Diarrhea-etiology uncertain] This note was generated with [employer] Line[employer] software. It may contain incorrect words, spelling, and punctuation that were not noted in review of the chart prior to signing ED Disposition - Plan for ED Patient: Chief Complaint: Diarrhea Referrals: Jaya Conte MD [Primary Care Provider] - What to do if you have Problems For any increased pain, shortness of breath, bleeding, nausea or vomiting, chest pain, or any unexpected problems, contact your Primary Care Provider. Call [facility] ([phone]) or report to the closest Emergency Room. Call 911 if necessary. 07/19/18 1439 <Electronically signed by Leesa Elizondo DO> Date Leesa Elizondo DO Cosigner Signature (If Indicated): Date CC: Jaya Conte MD URINALYSIS, COMPLETE Collected: 07/19/2018 Status: F Source: MERY 11:10 AM [facility] [place] [place] REPOSITORY Order Comment: How was Urine Obtained? CLEAN CATCH TYPE CODE TESTS RESULT OUT OF RANGE REFERENCE UNITS LAB L400.3000 Yellow COLOR Normal Yellow LAB L400.3050 Clear Normal CLARITY Clear LAB L400.3200 Normal mg/dl Normal GLUCOSE, UR Normal LAB L400.3300 Negative mg/dL Normal BILIRUBIN URINE Negative LAB L400.3400 Negative mg/dl Normal KETONE UR Negative LAB L400.3465 1.002-1.030 Normal SP.GR. DIPSTX 1.010 LAB L400.3550 5.0 - 8.0 pH UR Normal 7.0 LAB L400.3600 Negative mg/dl PROT Normal DIPSTX Negative LAB L400.3700 Normal mg/dl Normal UROBILI Normal LAB L400.3750 Negative Normal NITRITE UR Negative LAB L400.3780 Negative /ul Normal OCCULT BLOOD-UR Negative LAB L400.3800 Negative /ul LEUK Normal ESTERASE Negative LAB L400.4050 0-5 /hpf WBC 0 Normal SEEN LAB L400.4100 0-5 /hpf 0 Normal RBC-UA SEEN LAB L400.4150 5-10 /hpf SQUAM Normal EPI 0-5 SEEN LAB L400.4300 None Seen /hpf 0 Normal BACTERIA SEEN LAB L400.4350 <or=2+ /hpf 0 Normal MUCUS, URINE SEEN Performed By: #### L400.0001 #### [facility] [address] [facility] [address] [place], [place], [address] Observed: 07/19/2018 Status: F Source: MERY CDIFF (MOLECULAR) 11:10 AM [facility] [place] [place] REPOSITORY Is the patient receiving laxatives? N New/unexplained onset of 3 or more stools in past 24 hrs? Y Cdiff-Molecular C. Diff DNA Negative- No toxigenic C. Diff DNA Detected NAAT METHOD Testing was performed using nucleic acid amplification Performed By: #### M100.6796 #### [facility] [address] [facility] [place], [place], [address] Observed: 07/19/2018 Status: F Source: MERY ENTERIC PATHOGEN 11:10 AM [facility] [place] [place] PANEL STOOL REPOSITORY PANEL STOOL Normal Reference Range = Not Detected Not detected for Campylobacter group, Salmonella species, Shigella species, Vibrio Group, Yersinia enterocolitica, EHEC (Shiga Toxin 1, Shiga Toxin 2), Norovirus Gl/Gll, and Rotavirus A. Other common stool pathogens are not detected on this panel include: Aeromonas/Plesiomonas or parasites. Order testing for these organisms separately if suspected. This is an amplified DNA test which makes it both specific and sensitive. CAMPYLOBACTER Not Detected Salmonella Not Detected Shigella sp. Not Detected Shiga Toxin Not Detected Yersinia Not Detected VIBRIO Not Detected Norovirus Not Detected Rotavirus Not Detected Performed By: #### M100.637 #### [facility] [address] [place], [place], [address] Observed: 07/19/2018 Status: F Source: MERY OVA AND PARASITES 11:10 AM [facility] [place] [place] REPOSITORY O + P OVA AND PARASITES EXAM, ROUTINE These results were obtained using wet preparation(s) and trichrome stained smear. This test does not include testing for Crytosporidium parvum, Cyclospora, or Microsporidia. TESTING PERFORMED AT [facility]. ORIGINAL REPORT ON FILE IN LAB CONTAINS ADDITIONAL TEST SITE INFORMATION. Ova/Parasite Exam NO OVA, CYSTS, OR PARASITES FOUND. Performed By: #### M600.5000 #### [facility] [address] [place], [place], [address] CBC W/DIFF, AUTOMATED Collected: 07/19/2018 Status: F Source: MERY 10:15 AM [facility] [place] [place] REPOSITORY TYPE CODE TESTS RESULT OUT OF RANGE REFERENCE UNITS LAB L100.1000 4.4-11.0 K/mm3 Normal WBC 7.7 LAB L100.1200 4.2-5.4 M/mm3 Low RBC 4.10 LAB L100.1300 12.0-15.0 g/dl Normal HGB 15.0 LAB L100.1400 37-47 % Normal HCT 43.3 LAB L100.1500 81-99 fL High MCV 105.6 LAB L100.1600 27.0-32.0 pg High MCH 36.6 LAB L100.1700 32-36 g/gl Normal MCHC 34.6 LAB L100.1810 11.6-14.6 % Normal RDW CV 13.0 LAB L100.1820 35.1-43.9 fl High RDW SD 50.2 LAB L100.1900 150-450 K/mm3 Normal PLT 334 LAB L100.2000 6.2-12.0 fl Normal MPV 9.4 LAB L100.2100 47-70 % Normal NEUT% 56.4 LAB L100.2200 19-41 % Normal LY% 32.6 LAB L100.2300 0-10 % Normal MONO% 9.0 LAB L100.2400 0-5 % Normal EO% 1.6 LAB L100.2500 0-1 % Normal BASO% 0.3 LAB L100.2550 0.0-0.9 % Normal IM GRAN % 0.100 Result Comment: IG% - Immature Granulocytes (promyelocytes, myelocytes and metamyelocytes) > 1% indicates that a LEFT SHIFT is Present. LAB L100.2620 2.0-7.7 X10 3/uL Normal Absolute Neut 4.3 LAB L100.2720 0.83-4.51 X10 3/ul Normal Absolute Lymph 2.50 Performed By: #### L100.0100 #### [facility] [address] [place], [address] COMPREHENSIVE METABOLIC Collected: 07/19/2018 Status: F Source: [facility] 10:15 AM [facility] [place] [place] REPOSITORY TYPE CODE TESTS RESULT OUT OF RANGE REFERENCE UNITS LAB L501.0100 74-106 mg/dL Normal GLU 102 Result Comment: Fasting Glucose result from 100 to 125 mg/dL suggests IMPAIRED HOMEOSTASIS per A.D.A. criteria. Please note revised GLUCOSE reference range effective 2017. LAB L501.1000 7-18 mg/dL Low BUN 5 LAB L501.1100 0.55-1.02 mg/dL Normal CREAT,SERUM 0.65 Result Comment: The validity of the calculated GFR AND GFRAA in patients over 70 years has not been determined. Clinical correlation is essential. LAB L501.1110 >60 mL/min Normal EST GFR 105 Result Comment: Non- GFR Calc LAB L501.1115 >60 mL/min Normal EST GFR - AA 127 Result Comment: GFR Calc LAB L501.1255 ml/min Normal Estimated CRCL 99.38 LAB L501.1300 10-20 RATIO Low BUN/CRE 7.7 LAB L501.1500 6.4-8. g/dL Normal 2 T PROT 7.8 LAB L501.1800 3.2-5. g/dL Normal 0 ALB 3.8 LAB L501.1950 2.2-4. g/dL Normal 2 GLOB 4.0 LAB L501.2000 0.9-2. RATIO Normal 4 A/G 1.0 LAB L501.2200 8.5-10 mg/dL Normal .1 CA 8.9 LAB L501.4100 15-37 U/L High AST 78 LAB L501.4305 45-117 U/L High ALK P 122 LAB L501.4405 13-56 U/L High ALT 73 LAB L501.4600 0.20-1 mg/dL Normal .00 T BILI 0.30 LAB L501.5300 136-14 mmol/L Normal 5 NA 138 LAB L501.5600 3.5-5. mmol/L Low 1 K 3.2 LAB L501.5900 98-107 mmol/L Normal CL 104 LAB L501.6100 21.0-3 mmol/L Normal 2.0 CO2 25.0 LAB L501.6200 5-15 Normal GAP 9 Performed By: #### L500.4050, L501.2450 #### [facility] [address] [place], [address] LIPASE Collected: 07/19/2018 Status: F Source: [place] 10:15 AM [facility] [place] [place] REPOSITORY TYPE CODE TESTS RESULT OUT OF RANGE REFERENCE UNITS LAB L501.2450 73-393 U/L Normal LIPASE 248 Performed By: #### L500.4050, L501.2450 #### [facility] [address] [place], [address] LACTIC ACID Collected: 07/19/2018 Status: F Source: [place] 10:15 AM [facility] [place] [place] REPOSITORY Order Comment: Yes/No query for Sepsis Lactate Rule Y TYPE CODE TESTS RESULT OUT OF RANGE REFERENCE UNITS LAB L503.6005 0.4-2.0 mmol/L Normal LACTIC ACID 1.8 Performed By: #### L503.6005 #### [facility] [address] [place], [address] ALLERGIES ALLERGIES DATE TYPE / CODE NAME / CODE REACTION SEVERITY SOURCE 2018 Drug metronidazol Unknown [place] Mery Allergy/553213019(S e/[id number] [facility]) (RXNORM) Hospital Repository 2018 Miscellaneous BEE VENOM Anaphylaxis Unknown Mery Allergy/028742856([facility]) Hospital Repository 10/17/2017 Miscellaneous CODEINE Itching Unknown Mery Allergy/260056000([facility]) Hospital Repository 10/17/2017 Miscellaneous VICODIN Itching Unknown Mery Allergy/829641043([facility] NOM[facility]) Hospital Repository Drug/636379301(SNOM Vicodin Itching [facility] ED CT) [facility] Repository Drug/581970303(SNOM codeine [id number] [facility] ED [facility]) [facility] Repository Drug/107437615(SNOM Flagyl [id number] [facility] ED CT) [facility] Repository ENCOUNTERS ENCOUNTERS ADMIT/DISCHARGE ACCOUNT NUMBER ADMITTING ENCOUNTER LOCATION SOURCE CLASS 10/09/2018 [id number] [facility] [place] 10/02/2018/10/02/20 [id number] Emergency Mery Mery [address] [place] [address] ing:ED Repository 09/24/2018/09/24/[id number] [place], Ambulatory [address] Regional ing:[facility] Repository 09/24/[id number] Repository 09/05/2018 [id number] [facility] Repository 08/20/2018 [id number] [facility] [place] Repository [facility] 08/19/2018/08/19/20 [id number] [place], Emergency [address] Regional ing:[facility] EDRoom: WR Repository 08/19/2018 [id number] Ambulatory [address] [place] [address] Repository 08/17/2018/08/17/20 [id number] [place], Emergency [address] HospitalBuild Regional ing:[facility] EDRoom: [place] Repository 08/17/2018 [id number] Ambulatory [address] [place] [address] Repository 07/21/2018/07/21/20 [id number] [place], Ambulatory [address] HospitalBuild Regional ing:[facility] Repository 07/21/2018/07/21/[id number] [place]: Repository Med AssocRoom: Room 2 07/21/[id number] Repository 07/19/2018/07/19/20 [id number] Emergency Purdum Mery 18 [facility] ing:ED Repository 02/04/2018 [id number] Ambulatory BMSBuilding:Pradeep Ordonez MS.[facility] Repository 11/20/2017/11/20/19 [id number] Ambulatory Lukasz Velasco Congregation 18 DOBuilding:[facility] Repository 11/18/2017/11/18/19 [id number] Dg [facility] [place] [address] Jaya Verma [facility] [place] Repository Med AssocRoom: Room 1 PAYERS PAYERS ENCOUNTER GUARANTOR PAYER SUBSCRIBER SOURCE 10/09/2018 FLORENCIO R Primary ESTHER DOUGHERTYOB: Insurance[facility]: [facility] [id number] cy Number: Effective [id number] [facility] Date:2018-10-09 - [place], [place] [id number] [phone]: Name:Robson French [phone]: [facility] [id number], () [place] [address]CV: [phone]) () [phone] () 2018 FLORENCIO R Primary ESTHER Ordonez [id number] BUSTER Insurance:[facility] HospitalOB: [place], [place] cy Number: [id number] Hospital [address]Ywj: (211) [id number] Repository [phone] () e Date:0411-58-43[address]FYTMHHF, [place] [address]JT: 2018 Secondary NOT GIVENUNK Mery Insurance:SELF PAY [facility] Number: Effective Repository Date:2018 09/24/2018 FLORENCIO R Primary ESTHRE DOUGHERTYOB: Insurance:[facility] Hospital[facility]: [facility] [id number] cy Number: Effective [id number] System [facility] Date:2018-09-24 - [facility] Repository [facility], [place] [id number] [facility] [address]Ckj: Name:Robson French [phone]: [address]IZGWDDF, ([place]) [place] [address]AL: [phone]) (HP) 000-0000 (WP) 09/24/2018 [facility], [facility]: Insurance:[facility]: [facility] cy Number: [id number] [id number] [place], [facility] Date:[facility] [id number]: Name:Health (HP) 09/05/2018 [facility]: [facility] cy Number: Effective [id number] [facility] Date:2018-09-05 - [place], [place] [id number] [facility] [place] [address]Frg: Name:Robson French [phone]: [address]KJWPWVP, ([place]) [place] [address]JG: (800) (HP) 000-0000 (WP) 08/20/2018 [facility]: [facility] cy Number: Effective [id number] System [facility] Date:2018-08-20 - [facility] [place] [id number] [facility] [address]Vrd: Name:Robson French [phone]: [address]FSKWQMX, ([place]) [place] [address]XZ: (800) (HP) 000-0000 (WP) 08/19/2018 [facility]IO [facility]: [facility] cy Number: Effective [id number] System [facility] Date:2018-08-19 - [place], [place] 9896-85-23Swmw [place] [phone]: Name:Robson Fofana[address]Eld: [address]DEGMGJV, ([place]) [place] [address]FC: (800) (HP) 000-0000 (WP) 08/19/2018 [facility], [facility]: Insurance[facility]: [facility] cy Number: [id number] [facility] [id number] [place], [place] e Date:[facility] [id number]: Name:[facility] (HP) 08/17/2018 FLORENCIO R [facility]: [facility] cy Number: Effective [id number] [facility] Date:2018-08-17 - [place], [place] [id number] [place] [phone]: Name:Robson FofanaPO [address]Ulq: [address]DND[address], ([place]) [place] [address]RF: (800) (HP) 000-0000 (WP) 08/17/2018 [facility], [facility]: Insurance:[facility]: [facility] cy Number: [id number] [facility] Medical [id number], [place] e Date:Plan [id number]: Name:Health (HP) 07/21/2018 FLORENCIO R [facility]: Insurance:ANTHEMPoli [facility] cy Number: Effective [id number] [facility] Date:2018-07-21 - [facility] Repository [place], [place] [id number] [place] [address]Rye: Name:Robson CrossSS[address] [address] [place]Sov: [address]OEKDSDR, ([place]) [place] [address]FP: (800) (HP) 000-0000 (WP) 07/21/2018 FLORENCIO R [facility]: Insurance:[address] [place], [place] [address]OB: [facility] ANTHEMPolicy Number: [id number] [facility] Effective [place], [place] Date:2018-07-21 - [place] [address]Gfl: [id number] [address]Xyn: Name:CD:[id number] O (HP) [address]HSUY[address], (HP)Tel: (000) [place] [address]WP: 000-0000 (WP) 07/21/2018 FLORENCIO R [facility]: Insurance:AnthemPoli [facility] cy Number: [id number] [facility] [id number] [place] e Date:Plan [id number]: Name:Health () 07/19/2018 FLORENCIO R [place] [address] [address] Insurance:ANTHEMPoli [facility]: [place] cy Number: [id number] [facility] [address]Ezm: (781) [id number] Repository [phone] () e Date:9266-59-35XK [address]JIKZNJH, [place] [address]YQ: 07/19/2018 Secondary NOT GIVENUNK Mery Insurance:SELF PAY [facility] Number: Effective Repository Date:2018-07-19 02/04/2018 FLORENCIO MARCANO Primary ESTHER Ordonez [facility], Insurance:ANTHEMPoli [facility]: [place] [address]Vxp: (981) cy Number: [id number] Hospital [phone] () [id number] Repository e Date:8585-16-87CG [address]FUFXVYB, [place] [address]JA: 02/04/2018 Secondary NOT GIVENUNK Mery Insurance:SELF PAY [facility] Number: Effective Repository Date:2018-02-03 11/20/2017 FLORENCIO R Primary ESTHER Melo [facility] Insurance:[address] [facility]: [facility] ANTHEMPolicy Number: [id number] System [facility] Effective [facility] Repository [facility], [place] Date:2017-11-19 [place] [address]Uwy: [id number] [id number]: Name:CD:[id number] O () [address]DS[address], ()Tel: 000 [place] [address]GZ: 000-0000 () 11/18/2017 FLORENCIO Penn Primary ESTHER Melo [facility] Insurance:1500 [facility] ANTHEMPolicy Number: [id number] System [facility] Effective [facility] Repository [facility], [place] Date:2017-11-18 [place] [address]Yug: [id number] [id number]: Name:CD:[id number] O () [address]CLWTOP[address], ()Tel: (039) [place] [phone]: 000-0000 ()
== END 2018-10-02 11:55 | disposition home or self-care (01) ==
PROVIDERS: Emergency Provider Emergency Medicine; Family Provider Family Medicine; PCP Family Medicine
DX: S20.211A Contusion of right front wall of thorax, initial encounter (principal); S40.021A Contusion of right upper arm, initial encounter; S30.0XXA Contusion of lower back and pelvis, initial encounter; F17.200 Nicotine dependence, unspecified, uncomplicated; W17.89XA Other fall from one level to another, initial encounter; Y93.89 Activity, other specified; Y92.008 Other place in unspecified non-institutional (private) residence as the place of occurrence of the external cause; Y99.8 Other external cause status
CPT/HCPCS: 99283

== ENCOUNTER → 2019-05-29 14:55 | Outpatient (CLI) | payer BC, SELFPAY ==
[2019-05-29 09:07] VITALS: BMI 25.2
[2019-05-29 15:48] LABS: Mucous, Urine 0 SEEN /hpf (<or=2+)
[2019-05-29 15:59] LABS: Glucose, Dipstick Normal (Normal); Ketone-Dipstick Negative (Negative); Leukocyte Esterase-Dipstick 100 /ul (Negative); Nitrite-Dipstick Positive (Negative); Occult Blood-Urine 150 /ul (Negative); Protein-Dipstick 100 mg/dl (Negative); Urine Clarity Cloudy (Clear); Urine Urobilinogen 8 mg/dl (Normal)
[2019-05-29 16:08] LABS: Color, Urine SEE COMMENT BELOW (Yellow); Urine Bilirubin Dipstick 6 mg/dL (Negative)
[2019-05-29 16:12] LABS: Squamous Epithelial Cells - UA 5-10 SEEN /hpf (5-10)
[2019-05-29 16:13] LABS: Bacteria 4+ /hpf (None Seen); Red Blood Cells-Urine 50-100 SEEN /hpf (0-5); White Blood Cells 50-100 SEEN /hpf (0-5)
== END ==
LOC: LABSPEC 14:57
PROVIDERS: Family Provider Family Medicine; PCP Family Medicine; Referring Provider Physician Assistant Surgical; Visit Provider Physician Assistant Surgical
DX: R31.9 Hematuria, unspecified (principal)
CPT/HCPCS: 81001; 87086; 87088; 87186

== ENCOUNTER 2019-05-29 15:54 | Emergency (ER) | payer BC, SELFPAY ==
[2019-05-29 09:07] VITALS: BMI 25.2
[2019-05-29 16:00] VITALS: BP 128/80; PULSE 97; RESP 18; TEMP 37.4; O2SAT 97; BMI 27.5
[2019-05-29 16:24] LABS: Mucous, Urine 0 SEEN /hpf (<or=2+)
[2019-05-29 16:29] LABS: Absolute Lymphocyte Count 2.44 X10^3/uL (0.83-4.51); Absolute Neutrophil Count 9.8 X10^3/uL (2.0-7.7); Basophil# 0.05 X10^3/uL; Basophil% 0.4 % (0-1); Eosinophil# 0.04 X10^3/uL; Eosinophils% 0.3 % (0-5); Hematocrit 39.1 % (37-47); Hemoglobin 14.1 g/dL (12.0-15.0); Lymphocyte # 2.44 X10^3/ul (4.0); Lymphocyte % 18.4 % (19-41); Mean Corp Hgb Conc 36.1 g/dL (32-36); Mean Corpuscular Hgb 36.1 pg (27.0-32.0); Mean Platelet Vol. 9.4 fl (6.2-12.0); Monocyte# 0.84 X10^3/uL; Monocyte% 6.3 % (0-10); NRBC Flagged by Analyzer 0 % (0-5); Neutrophil # 9.83 X10^3/uL (2.7-7.7); Neutrophil % 74.3 % (47-70); Platelet Count 371 K/mm3 (150-450); RBC Distribution Width CV 12.4 % (11.6-14.6); RBC Distribution Width SD 45.3 fl (35.1-43.9); Red Blood Count 3.91 M/mm3 (4.2-5.4); White Blood Count 13.2 K/mm3 (4.4-11.0)
[2019-05-29 16:41] LABS: Color, Urine Yellow (Yellow); Glucose, Dipstick Normal (Normal); Ketone-Dipstick 5 mg/dl (Negative); Leukocyte Esterase-Dipstick 500 /ul (Negative); Nitrite-Dipstick Positive (Negative); Occult Blood-Urine 250 /ul (Negative); Protein-Dipstick 100 mg/dl (Negative); Specific Gravity, Urine 1.015 (1.002-1.030); Urine Clarity Cloudy (Clear); Urine Urobilinogen 4 mg/dl (Normal)
[2019-05-29 16:44] LABS: Anion Gap 7 (5-15); BUN 10 mg/dL (7-18); BUN/Creat Ratio 14.1 RATIO (10-20); Calcium,Total 8.7 mg/dL (8.5-10.1); Chloride 106 mmol/L (98-107); Creatinine, Serum 0.71 mg/dL (0.55-1.02); EST Glomerular Filtration Rate 95 mL/min (>60); Est Glom Filt Rate - Afr Amer 115 mL/min (>60); Estimated Creatinine Clearance 90.04 ml/min; Glucose 107 mg/dL (74-106); Potassium 3.9 mmol/L (3.5-5.1); Sodium Level 138 mmol/L (136-145)
--- NOTE | 2019-05-29 16:50 | ED.DCSUM_ITS ---
History of Present Illness Chief Complaint: Allergic Reaction Detail of Chief Complaint: Feet itching and anxiety Informant: Patient Onset: Today Context: Sudden Onset Timing: Continuous Quality: Feet itching Location: Feet Current Severity: Mild Maximum Severity: Moderate Worsened by: Anxiety Relieved by: Nothing Associated Symptoms: Symptoms of stimulation Narrative: Patient is a 43-year-old woman who was seen at urgent care and diagnosed with urinary tract infection even though a urine specimen was not obtained. She was prescribed Macrobid. She was placed on a combination medication for colonic spasm. There is no apparent interaction with the medicine and Sudafed. She took 1 dose of Sudafed. She does report history of anxiety. He does report palpitations. She reports feeling anxious. She reports itching of her feet. She denies cardiac or respiratory symptoms other than palpitations she denies nausea vomiting or diarrhea. She denies lip, tongue or throat swelling. She denies change in voice. Denies difficulty breathing or swallowing. She denies rash. Prior similar symptoms: Yes Recent Illness/Hospitalization: No - Past Medical History (1) History of anxiety disorder Status: Acute Past Medical History - Allergies and Home Meds Allergies/Adverse Reactions: Allergies metronidazole [From Flagyl] Allergy (Mild, Verified 05/29/19 15:55) Unknown BEE VENOM Allergy (Uncoded 05/29/19 15:55) Anaphylaxis Primary Care Physician: Jaya Conte MD [Primary Care Provider] - Surgical History: noncontributory Lives: Alone Smoking Status: Current every day smoker Alcohol: Rare Drugs: None Review of Systems General: Denies: Chills, Fever, Malaise, Subjective, Sweats, Weight loss, - Eyes: Denies: Visual changes - bilaterally, Diplopia ENT: Denies: Rhinorrhea, Sore throat Cardiovascular: Reports: Palpitations. Denies: Chest pain, Heart racing, -, - Respiratory: Reports: Dyspnea. Denies: Cough, Sputum, Dyspnea on exertion, Orthopnea, Paroxysmal nocturnal dyspnea, -, - Gastrointestinal: Denies: Abdominal pain, Nausea, Vomiting, Diarrhea, Melena, Hematochezia Genitourinary: Reports: Dysuria, Hematuria Musculoskeletal: Denies: Myalgias, Arthralgias, Neck pain, Back pain, Swelling, Extremity Pain Skin: Denies: Rash, Abscess, Abrasions, Wounds, -, - Neurological: Denies: Headache, Weakness, Parasthesia, Numbness Psych: Reports: Depression, Anxiety Endocrine: Denies: Polyuria, Polydipsia Hematologic: Denies: Easy bruising, Easy bleeding Allergy: Denies: Uticaria, Swelling of the mouth, Swelling of the tongue Physical Exam Vital Signs/Narrative: Vital Signs Temp Pulse Resp BP Pulse Ox 05/29/19 16:00 99.3 F H 97 18 128/80 H 97 Inital Vital Signs reviewed: Yes General: Well nourished, Well developed, No Acute Distress Head: Normocephalic, Atraumatic Eyes: Perrl, EOMI ENT: Moist mucous membranes, No rhinorrhea Neck: Supple, Nontender Cardiovascular: Regular rate, Regular rhythm, No murmurs Respiratory: No distress, CTA bilaterally, Chest nontender Abdomen: Soft, Nontender, Nondistended, Normal bowel sounds Back: Nontender, Normal Inspection Extremities: Nontender, No edema Skin: Normal color, No rash. Negative for: Cyanosis, Diaphoresis, Jaundice, No Trauma Neurological: Alert, Oriented x3, Cranial nerves II-XII grossly intact, Normal Strength, Normal Sensation, Normal DTR, Normal Gait Psychological: - - She does appear anxious. Diagnostic/Tx/Re-eval Laboratory Results 05/29/19 05/29/19 05/29/19 16:10 16:15 16:15 WBC 13.2 H RBC 3.91 L Hgb 14.1 Hct 39.1 MCV 100.0 H MCH 36.1 H MCHC 36.1 H RDW Std Deviation 45.3 H RDW Coeff of Farzana 12.4 Plt Count 371 MPV 9.4 Immature Gran % (Auto) 0.300 Neut % (Auto) 74.3 H Lymph % (Auto) 18.4 L [place] % (Auto) 6.3 Eos % (Auto) 0.3 Baso % (Auto) 0.4 Absolute Neuts (auto) 9.8 H Absolute Lymphs (auto) 2.44 Nucleated RBC % 0 Sodium 138 Potassium 3.9 Chloride 106 Carbon Dioxide 25.0 Anion Gap 7 BUN 10 Creatinine 0.71 Estim Creat Clear Calc 90.04 Est GFR (MDRD) Af Amer 115 Est GFR (MDRD) Non-Af 95 BUN/Creatinine Ratio 14.1 Glucose 107 H Calcium 8.7 Urine Color Yellow Urine Clarity Cloudy Urine pH 6.0 Ur Specific [place] 1.015 Urine Protein 100 H Urine Glucose (UA) Normal Urine Ketones 5 H Urine Occult Blood 250 H Urine Nitrite Positive H Urine Bilirubin 1 H Urine Urobilinogen 4 H Ur Leukocyte Esterase 500 H Urine RBC 50-100 SEEN Urine WBC >100 SEEN Ur Squamous Epith Cells 0-5 SEEN Urine Bacteria 3+ Urine Mucus 0 SEEN Patient's work-up does indicate she has urinary tract infection. Since she has an elevated white count she was given 1 g of Rocephin. She was prescribed Macrobid. She was told to take the Macrobid until gone. She was instructed to discontinue the other medication. - Medical Decision Making UA was obtained to assess for urinary tract infection. She was placed on the monitor to detect dysrhythmia etc. The symptoms she is experienced may be side effect from the medication she was prescribed and not necessarily interaction from Sudafed she took yesterday. Indicates she has a urinary tract infection with elevated white count. She received IV antibiotics. ED Disposition - Plan for ED Patient: Disposition: Home or Assisted Living Diagnosis: Hemorrhagic cystitis, Anxiety reaction, Palpitations Referrals: Jaya Conte MD [Primary Care Provider] - Additional Instructions: Discontinue taking the medicine for your stomach. Fill prescription for antibiotic to treat your urinary tract infection.
[2019-05-29 16:56] LABS: Urine Bilirubin Dipstick 1 mg/dL (Negative)
[2019-05-29 16:59] LABS: Red Blood Cells-Urine 50-100 SEEN /hpf (0-5); White Blood Cells >100 SEEN /hpf (0-5)
[2019-05-29 17:04] LABS: Bacteria 3+ /hpf (None Seen); Squamous Epithelial Cells - UA 0-5 SEEN /hpf (5-10)
--- NOTE | 2019-05-29 18:09 | ED.DCSUM_ITS ---
- ER Visit Summary Date of Service: 05/29/19 Chief Complaint: [] History of Present Illness: The patient is a 43 F [] Physical Examination: [] Test Results: [] Emergency Department Course and Treatment: [] Treatment Plan: [] Disposition: [] Impression: [] This note was generated with [employer] dictation software. It may contain incorrect words, spelling, and punctuation that were not noted in review of the chart prior to signing ED Disposition - Plan for ED Patient: Disposition: Home or Assisted Living Diagnosis: Hemorrhagic cystitis, Anxiety reaction, Palpitations Instructions: DRUG REACTION, Other, Urinary Tract Infections in Women Referrals: Jaya Conte MD [Primary Care Provider] - Additional Instructions: Discontinue taking the medicine for your stomach. Fill prescription for antibiotic to treat your urinary tract infection.
[2019-05-29] MEDS: Naproxen 500 MG Tablet PO (18:28)
[2019-05-29] MEDS: Ceftriaxone 1 GM/50 ML BAG IV (18:28)
[2019-05-29 19:17] VITALS: BP 135/74
== END 2019-05-29 19:17 | disposition home or self-care (01) ==
PROVIDERS: Emergency Provider Emergency Medicine; Family Provider Family Medicine; PCP Family Medicine
DX: N30.91 Cystitis, unspecified with hematuria (principal); F41.1 Generalized anxiety disorder; R00.2 Palpitations; L29.9 Pruritus, unspecified; F32.9 Major depressive disorder, single episode, unspecified; F17.200 Nicotine dependence, unspecified, uncomplicated
CPT/HCPCS: 80048; 81001; 85025; 96365; 99285; J7050; A4216

== ENCOUNTER 2021-01-02 11:41 | Emergency (ER) | payer BC, SELFPAY ==
[2021-01-02 11:42] VITALS: BP 174/110; PULSE 104; RESP 16; TEMP 36.2; O2SAT 99; BMI 26.6
[2021-01-02 12:07] VITALS: BP 174/110; PULSE 114; RESP 16; TEMP 36.2; O2SAT 99
[2021-01-02] MEDS: Ketorolac 15 MG/ML Vial IV (12:43)
--- NOTE | 2021-01-02 13:23 | ED.DCSUM_ITS ---
History of Present Illness Chief Complaint: Abscess Informant: Patient Onset: Month(s) Context: Gradual Onset Timing: Continuous Quality: Redness and swelling Location: Medial inferior portion of right breast Current Severity: Mild Maximum Severity: Moderate Worsened by: Bra strap Relieved by: Nothing Associated Symptoms: None Narrative: Patient is a 45-year-old woman who presents because a painful red bump medial right breast. First noted a year ago. Is grown significantly in size over the past 1 to 2 days. She denies fever, chills night sweats progressive traumatic fever, heart murmur, SBE or being immune suppressed. There is no history of diabetes. She has no allergies to penicillin, cephalosporin or doxycycline. She does report allergy to metronidazole. Prior similar symptoms: No Recent Illness/Hospitalization: No - Past Medical History (1) History of anxiety disorder Status: Acute Past Medical History - Allergies and Home Meds Allergies/Adverse Reactions: Allergies metronidazole [From Flagyl] Allergy (Mild, Verified 01/02/21 11:44) Unknown BEE VENOM Allergy (Uncoded 01/02/21 11:44) Anaphylaxis Primary Care Physician: Jaya Conte MD [Primary Care Provider] - Prior records reviewed: Yes Surgical History: noncontributory Lives: Spouse/ Significant Other Smoking Status: Current every day smoker Alcohol: Rare Drugs: None Review of Systems General: Denies: Chills, Fever, Malaise, Subjective Eyes: Denies: Visual changes - bilaterally, Blurred Vision - bilaterally Cardiovascular: Reports: Chest pain. Denies: Palpitations, Heart racing Respiratory: Denies: Dyspnea, Cough, Dyspnea on exertion Gastrointestinal: Denies: Nausea, Vomiting Musculoskeletal: Denies: Myalgias, Arthralgias, Extremity Pain Skin: Reports: Rash, Abscess Neurological: Denies: Headache, Weakness Psych: Denies: Depression Endocrine: Denies: Polyuria, Polydipsia Physical Exam Vital Signs/Narrative: Vital Signs Temp Pulse Resp BP Pulse Ox 01/02/21 12:07 97.2 F L 114 H 16 174/110 H 99 01/02/21 11:42 97.2 F L 104 H 16 174/110 H 99 Inital Vital Signs reviewed: Yes General: Well nourished, Well developed, Acute Distress Head: Normocephalic, Atraumatic Eyes: Perrl, EOMI. Negative for: Pale conjunctiva, Scleral icterus ENT: Moist mucous membranes, No rhinorrhea Neck: Supple, Nontender, No lymphadenopathy, No JVD Cardiovascular: Regular rhythm, No murmurs, Normal S1, Normal S2, Tachycardia Respiratory: No distress, CTA bilaterally, Chest tenderness - Wall tenderness over presumed abscess.. Negative for: Chest nontender Abdomen: Soft, Nontender, Nondistended, Normal bowel sounds Skin: Normal color, Rash - Mellitus between right and left breast Neurological: Alert, Oriented x3, Cranial nerves II-XII grossly intact, Normal Strength, Normal Sensation Psychological: Normal affect Diagnostic/Tx/Re-eval - Medical Decision Making Patient has a subcutaneous abscess with cellulitis. Patient was informed that an incision needs to be performed to drain the abscess. Because she has surrounding cellulitis will place on antibiotic. Procedures Procedure(s): Is informed of risk benefits of procedure and reason why procedure needed to be performed. She did consent. Patient was prepped draped sterile manner. The area anesthetized by field block. An incision was made using a 15 blade. The incision is approximately 1 cm in size. Patient has an infected sebaceous cyst. The capsule was removed. There is still evidence of surrounding cellulitis. ED Disposition - Plan for ED Patient: Disposition: Home or Assisted Living Diagnosis: Infected sebaceous cyst of skin, Cellulitis of chest wall Instructions: ED Cellulitis, Epidermoid Cyst Infect I and D, Epidermoid Cyst Infect Antibiotics Prescriptions: Doxycycline 100 mg PO BID #10 cap Transmission Status: Pending to [facility] Hydrocodone Bitart/Apap 5-325 [[place] 5MG-325MG] 1 tablet PO Q6H PRN PRN 3 Days #10 tablet PRN Reason: Pain Transmission Status: Sent to [facility] Referrals: Jaya Conte MD [Primary Care Provider] - 2 Days for wound check
[2021-01-02] MEDS: Lidocaine 1% (20 ml mdv) 20 ML Vial INFILT (13:29)
[2021-01-02] MEDS: HYDROcodone Bitartrate/Apap 5/325 Tablet PO (13:39)
[2021-01-02] MEDS: Doxycycline 100 MG CAPSULE PO (13:39)
[2021-01-02 13:43] VITALS: BP 162/74; PULSE 88; RESP 15; O2SAT 97
== END 2021-01-02 13:43 | disposition home or self-care (01) ==
PROVIDERS: Emergency Provider Emergency Medicine; PCP Family Medicine
DX: L72.3 Sebaceous cyst (principal); L03.313 Cellulitis of chest wall; F17.200 Nicotine dependence, unspecified, uncomplicated
CPT/HCPCS: 10060; 96374; 99284; A4216

== ENCOUNTER 2023-11-13 11:30 | Emergency (ER) | payer BC, SELFPAY ==
[2023-11-13 11:31] VITALS: BP 188/109; PULSE 104; RESP 16; TEMP 36.3; O2SAT 100; BMI 27.5
[2023-11-13 11:49] VITALS: BP 164/106; PULSE 94
--- NOTE | 2023-11-13 12:10 | EX.ED.DYSGE1 ---
HPI History of Present Illness Chief Complaint: Anxiety Informant: patient Narrative Narrative: 48-year-old female presenting to the emergency room with anxiety hypertension. Patient states that she feels extremely anxious and cannot calm down. She states that yesterday she came to the hospital for vascular consult. She states it was noted that she was hypertensive and tachycardic. She states that since she was a child she has a fear/hate of doctors and hospitals. She states that typically she can get out of the appointment and calm down but last night could not. She states that she drank to the point of intoxication last night to get some sleep. She brought a flask with her. She spoke with a nursing friend who was concerned about her high blood pressure which she states then made her even more anxious. She is not currently treated for anxiety or hypertension. She is able to get a ride home. Prior to our conversation the patient was getting dressed wanting to leave. I offered to see her and she decided to stay. PFSH PFSH Home Medications lorazepam 1 mg tablet (Ativan) 1 mg PO BID PRN anxiety #14 tabs 11/13/23 [Rx Last Taken Unknown] Allergy/AdvReac Type Severity Reaction Status Date / Time bee venom protein (honey bee) Allergy Severe Anaphylaxis Verified 11/13/23 11:33 diphenhydramine Allergy Severe Swelling Verified 11/13/23 11:33 [From Benadryl Allergy] pine nut Allergy Severe Rash Verified 11/13/23 11:33 metronidazole [From Flagyl] Allergy Intermediate Vomiting Verified 11/13/23 11:33 Surgical History gallbladder surgery H/O dilation and curettage H/O: hysterectomy History of tonsillectomy Social History Smoking Status: Current every day smoker tobacco type: cigarettes alcohol intake: current substance use type: does not use caffeine: Yes what type of physical activity do you participate in: walking frequency: 5-6 times per week seatbelt use: always do you feel safe at home: Yes additional social history: Merary CROUCH ROS ED Constitutional Constitutional ED: Denies chills, fever(s) or weight loss Eyes Eyes: Denies change in vision or diplopia ENT ENT ED: Denies ear pain, rhinorrhea or sore throat Cardiovascular Cardiovascular: Denies chest pain, orthopnea, palpitations or racing heartbeat Respiratory/Chest Respiratory/Chest: Denies cough, dyspnea or orthopnea Gastrointestinal Gastrointestinal: Denies abdominal pain, diarrhea, nausea or vomiting Genitourinary Genitourinary ED: Denies dysuria, hematuria or urinary frequency Musculoskeletal Musculoskeletal: Denies arthralgias or myalgias Integumentary Denies abscess or rash Neurologic Neurologic: Denies headache(s) or weakness Psychiatric Psychiatric: Reports anxiety; Denies depression, suicidal ideation or suicidal thoughts Endocrine Endocrinology: Denies polydipsia, polyphagia or polyuria Allergic/Immunologic Allergic/Immunologic ED: Denies mouth swelling, tongue swelling or urticaria EXAM Physical Exam Const Vital Signs: 11/13/23 11:31 11/13/23 11:49 11/13/23 13:12 Temperature 97.3 F L Temperature Source Temporal Pulse Rate 104 H 94 Respiratory Rate 16 18 Blood Pressure 188/109 H 164/106 H 150/93 H Blood Pressure Mean 135 125 112 Pulse Ox 100 Oxygen Delivery Method Room Air 11/13/23 14:49 Temperature Temperature Source Pulse Rate 73 Respiratory Rate 14 Blood Pressure 152/100 H Blood Pressure Mean 117 Pulse Ox Oxygen Delivery Method Positive well nourished and well developed General Appearance ED: well developed HEENT Reports normocephalic, head/scalp atraumatic and moist mucous membranes Eyes PERRL and EOMs intact bilaterally Neck no lymphadenopathy, supple and no JVD Resp normal respiratory effort and clear to auscultation bilaterally Cardio regular rate, regular rhythm and no murmurs GI normal to inspection, nondistended, normoactive bowel sounds and non-tender Palpation: soft Back/Spine no CVA tenderness and normal ROM Extremity normal to inspection General Extremety ED: Negative for edema General Extremity: Negative for edema Neuro oriented x3 and CN's II-XII intact bilaterally Sensorium / Orientation: alert Motor Exam: strength 5/5 throughout Psych Psych Narrative: Patient has pressured speech. She appears emotionally upset/tearful. Mood & Affect: anxious and tearful Skin no rashes or lesions noted and no wounds MDM MDM MDM Narrative Medical decision making narrative: Patient received a milligram of Ativan. She states it made her drowsy but she still anxious. Her blood pressure has come down now 152/100. I will give her a dose of Valium. I am hesitant to prescribe anything for hypertension as she reports a longstanding history of whitecoat syndrome. I think getting data points from an outpatient standpoint may be of benefit. I can certainly write for some Ativan at home. I did recommend avoidance of alcohol. She needs to speak with her doctor regarding the anxiety and its management. Discharge Plan Triage Chief Complaint: Anxiety ED Provider: Johann Grubbs Dx/Rx/DC Orders Clinical Impression: Anxiety, Hypertension Instructions: Anxiety Disorders Tx, ED Hypertension, To Be Confirmed Prescriptions: New lorazepam [Ativan] 1 mg tablet 1 mg PO BID PRN (Reason: anxiety) Qty: 14 0RF Primary Care Provider: Care Physician,No Primary Referrals: Jaya Conte MD [Non-Staff] - As soon as possible Activity Restrictions/Additional Instructions: I would strongly recommend monitoring your blood pressure either at home or at a store that has a cough to take it in. Please record your blood pressure measurements and take to your doctor. This will provide them with some data points to base treatment on. Disposition Disposition: Home, Self Care Discharge Date/Time: 11/13/23 14:50
[2023-11-13] MEDS: LORazepam 1 MG Tablet PO (12:30)
[2023-11-13 13:12] VITALS: BP 150/93; RESP 18
--- NOTE | 2023-11-13 14:15 | HP.PCM.HOS_ITS ---
HPI - General HPI Narrative FLORENCIO DEMPSEY, is a 48 F who presents [facility] Home Medications NK 11/13/23 [History Last Taken Unknown] Allergy/AdvReac Type Severity Reaction Status Date / Time bee venom protein (honey bee) Allergy Severe Anaphylaxis Verified 11/13/23 11:33 diphenhydramine Allergy Severe Swelling Verified 11/13/23 11:33 [From Benadryl Allergy] pine nut Allergy Severe Rash Verified 11/13/23 11:33 metronidazole [From Flagyl] Allergy Intermediate Vomiting Verified 11/13/23 11:33 Surgical History gallbladder surgery H/O dilation and curettage H/O: hysterectomy History of tonsillectomy Social History Smoking Status: Current every day smoker tobacco type: cigarettes alcohol intake: current substance use type: does not use caffeine: Yes what type of physical activity do you participate in: walking frequency: 5-6 times per week seatbelt use: always do you feel safe at home: Yes additional social history: Merary meneses Vital Signs Vital Signs Vital Signs: 11/13/23 11:31 11/13/23 11:49 11/13/23 13:12 Temperature 97.3 F L Temperature Source Temporal Pulse Rate 104 H 94 Respiratory Rate 16 18 Blood Pressure 188/109 H 164/106 H 150/93 H Blood Pressure Mean 135 125 112 Pulse Ox 100 Oxygen Delivery Method Room Air Weight Weight: 72.802 kg Body Mass Index (BMI) 27.5
[2023-11-13] MEDS: diazePAM 5 MG Tablet PO (14:30)
[2023-11-13 14:49] VITALS: BP 152/100; PULSE 73; RESP 14
== END 2023-11-13 14:50 | disposition home or self-care (01) ==
PROVIDERS: Emergency Provider Emergency Medicine; Visit Provider Emergency Medicine
DX: F41.9 Anxiety disorder, unspecified (principal); I10 Essential (primary) hypertension; F17.210 Nicotine dependence, cigarettes, uncomplicated
CPT/HCPCS: 99282

== ENCOUNTER 2024-03-26 10:10 | Outpatient (CLI) | payer BC, SELFPAY ==
--- NOTE | 2024-03-26 10:21 | VDLE_ITS ---
Reason For Study: Bilateral leg pain RIGHT LEFT CFV is compressible, spontaneous, phasic, CFV is compressible, spontaneous, phasic, competent and demonstrates normal competent, and demonstrates normal augmentation. augmentation. FV is compressible, spontaneous, phasic, FV is compressible, spontaneous, phasic, competent and demonstrates normal competent and demonstrates normal augmentation. augmentation. POP V is compressible, spontaneous, phasic, POP V is compressible, spontaneous, phasic, competent and demonstrates normal competent and demonstrates normal augmentation. augmentation. T/P Trunk is compressible. T/P Trunk is compressible. PTV is compressible. PTV is compressible. RT PerV is compressible. LT PerV is compressible. SFJ is competent and measures 0.56 x 0.63 cm. SFJ is INCOMPETENT and measures 0.51 x 0.52 GSV proximal thigh measures 0.20 x 0.20 cm. cm. GSV at knee measures 0.13 x 0.13 cm. GSV proximal thigh measures 0.27 x 0.27 cm. GSV is competent throughout. GSV at knee measures 0.20 x 0.22 cm. SSV proximal calf is competent and measures GSV is competent throughout. 0.10 x 0.10 cm. SSV proximal calf is competent and measures Procedure 0.25 x 0.26 cm. This is a venous duplex using B-mode, color flow and spectral Doppler. Exam performed in department. Patient was scanned in reverse Trendelenburg position during reflux assessment. VL/Venous Duplex US - Frederic Extrem Interpretation Summary Deep veins of the bilateral lower extremities are patent and compressible segme ntally. There is no evidence of bilateral lower extremity deep vein thrombosis. The bilateral great saphenous veins appear patent and compressible segmentally. Positive for reflux in the left saphenofemoral junction Ordering Physician: Shanon Carpio Referring Physician: Kassandra Aceves Performed By: Yessy Das RVT
== END 2024-03-26 23:59 | disposition home or self-care (01) ==
PROVIDERS: PCP Family Medicine; Referring Provider Physician Assistant; Visit Provider Physician Assistant
DX: I83.899 Varicose veins of unspecified lower extremity with other complications (principal)
CPT/HCPCS: 93970